=== PATIENT | male | born 1985 | race African-American/Black ===

== ENCOUNTER 2018-06-12 18:50 | Emergency (ER) | payer OTHER ==
[2018-06-12] MEDS ORDERED: Fluorescein Opthalmic Strip ONE (19:11)
[2018-06-12] MEDS ORDERED: Proparacaine 0.5% Opth 15 ML BOT ONE (19:15)
[2018-06-12] MEDS ORDERED: Acetaminophen 500 MG TAB ONE (20:21)
[2018-06-12] MEDS ORDERED: Erythromycin Base 0.5% Oint 1 GM TUBE R EYE SCH (20:30)
[2018-06-12] MEDS ORDERED: Erythromycin Base 0.5% Ophth Oint 3.5 gm Tube ONE (20:48)
== END 2018-06-12 21:40 ==
LOC: ERS 18:50
DX: S05.01XA Injury of conjunctiva and corneal abrasion without foreign body, right eye, initial encounter (principal); E11.9 Type 2 diabetes mellitus without complications; I10 Essential (primary) hypertension; Z79.82 Long term (current) use of aspirin; Z79.899 Other long term (current) drug therapy; W21.01XA Struck by football, initial encounter; Y93.61 Activity, american tackle football; Y92.149 Unspecified place in prison as the place of occurrence of the external cause
CPT/HCPCS: 99283